=== PATIENT | male | born 1950 | race Caucasian/White ===

== ENCOUNTER 2018-04-11 13:08 | Day surgery (SDC) | payer OTHER, MEDICARE ==
[~2018-04-11] VITALS: Ht 180.3 cm; Wt 124.7 kg
[2018-04-11] VITALS (7 sets, daily range): BP systolic 119–165; BP diastolic 50–65; PULSE 64–68; TEMP 98–98.4
[~2018-04-11 13:08] MED LIST: ALDACTONE 25MG25 M1 PO; ASPIRIN E.C. 8181 MG PO; COLACE 100100 MG/CAP PO; COREG12.5 MG PO; COZAAR100 MG PO; CRESTOR40 MG PO; EUCERIN1 CRE TOP; FERROUSAL325 MG PO; FLOMAX 0.40.4 MG/CAP PO; GLUCOPHAGE850 MG/TAB PO; HCTZ 25MG TAB25 MG PO; HYTRIN 2MG CAPSU2 MG PO; INSLANT SQ; K-DUR20 MEQ PO; LASIX 20MG TABL20 MG PO; LEVEMIR FLEX100 U/ML SQ; NARCAN4 MG NS; NEURONTIN600 MG/TAB PO; NITROSTAT0.4 MG/TAB SL; NORCO 325 MG-101 TAB PO; NOVLOG SQ; NOVOLOG FLEX100 U/ML SQ; PLAVIX 75MG TAB75 MG PO; PROSCAR 5MG5 MG PO; PROTONIX 40MG T40 MG PO; TOPROL XL 50MG50 MG PO; VITAMIN D3400 I1 PO; ZANTAC 150MG T150 MG PO
[2018-04-11] MEDS ORDERED: CIPRO 500MG TA500 MG PO (14:11)
== END 2018-04-11 20:10 | disposition home or self-care (01) ==
LOC: SDCO 13:08 → SURG 18:23 → SDCO 20:10
DX: N20.0 Calculus of kidney (principal); I10 Essential (primary) hypertension; E11.42 Type 2 diabetes mellitus with diabetic polyneuropathy; K21.9 Gastro-esophageal reflux disease without esophagitis; N40.0 Benign prostatic hyperplasia without lower urinary tract symptoms; E78.5 Hyperlipidemia, unspecified; I25.10 Atherosclerotic heart disease of native coronary artery without angina pectoris; G47.33 Obstructive sleep apnea (adult) (pediatric); M19.90 Unspecified osteoarthritis, unspecified site; I25.2 Old myocardial infarction; N39.0 Urinary tract infection, site not specified; Z95.1 Presence of aortocoronary bypass graft; Z79.4 Long term (current) use of insulin; Z79.02 Long term (current) use of antithrombotics/antiplatelets; Z88.0 Allergy status to penicillin; Z88.3 Allergy status to other anti-infective agents; Z87.891 Personal history of nicotine dependence; Z86.73 Personal history of transient ischemic attack (TIA), and cerebral infarction without residual deficits
CPT/HCPCS: OP; C1769; C2617; J0690; J2405; J2704; J3010; J7030; J7120

== ENCOUNTER → 2018-04-28 | Day surgery (SDC) | payer OTHER, MEDICARE ==
[~2018-04-28] VITALS: Ht 180.3 cm; Wt 126.1 kg
[~2018-04-28] MED LIST changes: +CIPRO 500MG TA500 MG PO; +PYRIDIUM 100MG100 MG PO
[2018-04-28 07:10] VITALS: BP 117/45; PULSE 59; TEMP 98
--- NOTE | 2018-04-28 07:16 | NUR ---
TO RM AT 0627- CALL LIGHT IN REACH AT BEDSIDE
[2018-04-28 10:50] VITALS: BP 129/50; PULSE 66; TEMP 97.3
--- NOTE | 2018-04-28 10:50 | NUR ---
TO RM 8 PER CART FROM PACU. ALERT ORIENTED X3, TALKING WITH STAFF AND . DENIES PAIN OR DISCOMFORT AT CURRENT TIME.
[2018-04-28 11:05] VITALS: BP 141/55; PULSE 63
--- NOTE | 2018-04-28 11:05 | NUR ---
RECEIVED JELLO AND WATER. PATIENT STATED HE DIDN'T WANT TO EAT HERE, CAUSE HE WANTED TO GO OUT TO EAT.
[2018-04-28 11:20] VITALS: BP 137/54; PULSE 63
[2018-04-28 11:35] VITALS: BP 139/53; PULSE 53
--- NOTE | 2018-04-28 11:35 | NUR ---
TOLERATED PO WELL AND ASKING TO GO HOME.
--- NOTE | 2018-04-28 12:00 | NUR ---
VOIDED 100CC LIGHT PINK URINE WITH ONE SMALL CLOT.
--- NOTE | 2018-04-28 12:15 | NUR ---
RECEIVED DISCHARGE INSTRUCTIONS AND VERBALIZED UNDERSTANDING. AT BEDSIDE. ASSISTING PATIENT DRESSED
--- NOTE | 2018-04-28 12:25 | NUR ---
DISCHARGED PER WC BY NURSING STAFF TO PRIVATE CAR IN CARE OF -OSKAR.
[2018-04-28 14:49] VITALS: BP 129/50; PULSE 67
== END ==
LOC: SDCO 06:15
DX: N20.0 Calculus of kidney (principal); E11.42 Type 2 diabetes mellitus with diabetic polyneuropathy; Z79.84 Long term (current) use of oral hypoglycemic drugs; Z79.4 Long term (current) use of insulin; Z96.41 Presence of insulin pump (external) (internal); I25.10 Atherosclerotic heart disease of native coronary artery without angina pectoris; I10 Essential (primary) hypertension; E78.5 Hyperlipidemia, unspecified; K21.9 Gastro-esophageal reflux disease without esophagitis; N40.1 Benign prostatic hyperplasia with lower urinary tract symptoms; N39.498 Other specified urinary incontinence; R30.0 Dysuria; R31.9 Hematuria, unspecified; Z79.82 Long term (current) use of aspirin; Z79.899 Other long term (current) drug therapy; Z86.73 Personal history of transient ischemic attack (TIA), and cerebral infarction without residual deficits; G47.33 Obstructive sleep apnea (adult) (pediatric); Z79.02 Long term (current) use of antithrombotics/antiplatelets; R20.2 Paresthesia of skin; Z95.1 Presence of aortocoronary bypass graft
CPT/HCPCS: C1769; C2617; J0690; J1885; J2405; J2704; J3010; J7030

== ENCOUNTER → 2018-12-18 | Outpatient (CLI) | payer OTHER, MEDICARE | LOC: MHCPAIN 09:21 | DX: G89.29 Other chronic pain (principal); M54.12 Radiculopathy, cervical region; M47.812 Spondylosis without myelopathy or radiculopathy, cervical region | CPT/HCPCS: G0463 ==

== ENCOUNTER 2021-04-24 17:48 | Emergency (ER) | payer OTHER ==
[~2021-04-24] VITALS: Ht 182.9 cm; Wt 105.5 kg
[2021-04-24 18:14] VITALS: TEMP 100.2
[2021-04-24 20:27] VITALS: BP 110/68; PULSE 78
== END 2021-04-24 20:27 | disposition home or self-care (01) ==
LOC: COL.ER 17:48
DX: U07.1 COVID-19 (principal); I25.10 Atherosclerotic heart disease of native coronary artery without angina pectoris; I10 Essential (primary) hypertension; E11.9 Type 2 diabetes mellitus without complications; J44.9 Chronic obstructive pulmonary disease, unspecified; F17.200 Nicotine dependence, unspecified, uncomplicated; Z79.02 Long term (current) use of antithrombotics/antiplatelets; Z79.899 Other long term (current) drug therapy; Z79.4 Long term (current) use of insulin; Z79.82 Long term (current) use of aspirin